=== PATIENT | male | born 1990 | race Caucasian/White ===

== ENCOUNTER 2017-03-19 10:44 | Emergency (ER) | payer SELFPAY ==
[~2017-03-19] VITALS: Ht 190.5 cm; Wt 108.4 kg
[2017-03-19 11:00] VITALS: BP 147/56
[2017-03-19] MEDS ORDERED: IBUPROFEN 800 MG TABLET. PO ONE (11:30)
--- NOTE | 2017-03-19 11:55 | RAD ---
Indication swollen. No history of injury. AP lateral and oblique views of the left foot were obtained. Similar AP lateral and oblique views of the ankle were also obtained. The ankle appears unremarkable. No bony abnormality is seen. Views of the foot also appear unremarkable apart from some soft tissue swelling laterally. IMPRESSION: No acute or significant bony finding involving the foot or ankle
--- NOTE | 2017-03-19 12:18 | PHYS DOC ---
Past Medical History Past Medical History: No Pertinent History Past Surgical History: Other Additional Past Surgical Histo: KNEE Alcohol Use: Occasionally Drug Use: Marijuana Adult General Chief Complaint Chief Complaint: ANKLE PROBLEM HPI HPI Patient is a 26 year old male presents to the emergency department stating that he has having left lateral foot and ankle pain for the last 2 days. Patient states that he has a knot just below his ankle on the foot. Patient denies any injury or trauma. He does state he has increased pain with ambulation or weight bearing weight. Patient has not taken anything for pain and discomfort. He denies any numbness or tingling into his toes. Peripheral pulses are 2+ cap refill brisk less than 2 seconds. Review of Systems Review of Systems Constitutional: Denies fever or chills [] Eyes: Denies change in visual acuity, redness, or eye pain [] HENT: Denies nasal congestion or sore throat [] Respiratory: Denies cough or shortness of breath [] Cardiovascular: No additional information not addressed in HPI [] GI: Denies abdominal pain, nausea, vomiting, bloody stools or diarrhea [] : Denies dysuria or hematuria [] Musculoskeletal: Denies back pain. Right ankle/foot pain and discomfort Integument: Denies rash or skin lesions [] Neurologic: Denies headache, focal weakness or sensory changes [] Endocrine: Denies polyuria or polydipsia [] Current Medications Current Medications Current Medications Medications (Trade) Dose Ordered Sig/[facility] Start Time Stop Time Status Last Admin Dose Admin Ibuprofen (Motrin) 800 mg 1X ONCE 03/19/17 11:30 03/19/17 11:31 DC 03/19/17 11:40 800 MG Allergies Allergies Allergies Coded Allergies Type Severity Reaction Last Updated Verified No Known Drug Allergies 01/25/16 No Physical Exam Physical Exam Constitutional: Well developed, well nourished, no acute distress, non-toxic appearance. [] HENT: Normocephalic, atraumatic, bilateral external ears normal, oropharynx moist, no oral exudates, nose normal. [] Eyes: PERRLA, EOMI, conjunctiva normal, no discharge. [] Neck: Normal range of motion, no tenderness, supple, no stridor. [] Cardiovascular:Heart rate regular rhythm Lungs & Thorax: No respiratory distress noted Skin: Warm, dry, no erythema, no rash. [] Extremities: Left ankle/foot tenderness, no cyanosis, no clubbing, ROM intact, no edema. Patient with a golf ball size area on the left upper foot/ankle area. Tenderness was noted. Peripheral pulses are 2+ cap refill brisk less than 2 seconds. Patient with full range of motion of the ankle area. Neurologic: Alert and oriented X 3, normal motor function, normal sensory function, no focal deficits noted. [] Psychologic: Affect normal, judgement normal, mood normal. [] Current Patient Data Vital Signs Vital Signs Date Time Temp Pulse Resp B/P (MAP) Pulse Ox O2 Delivery O2 Flow Rate FiO2 03/19/17 11:00 97.5 56 18 100 Room Air 97.5 EKG EKG [] Radiology/Procedures Radiology/Procedures [][facility] [address] [place] [address] IMAGING REPORT Signed PATIENT: CHA BEGUM ACCOUNT: [id number] : 1990 LOCATION: ER AGE: 26 SEX: M EXAM [id number] STATUS: REG ER ORD. PHYSICIAN: LUCIAN BELTRE APRN REASON: left ankle pain PROCEDURE: ANKLE LEFT 3V; FOOT LEFT 3V Indication swollen. No history of injury. AP lateral and oblique views of the left foot were obtained. Similar AP lateral and oblique views of the ankle were also obtained. The ankle appears unremarkable. No bony abnormality is seen. Views of the foot also appear unremarkable apart from some soft tissue swelling laterally. IMPRESSION: No acute or significant bony finding involving the foot or ankle DICTATED and SIGNED BY: LEI HANSEN MD DATE: 03/19/17 1150 CC: LUCIAN BELTRE APRN; NO PCP ~ Course & Med Decision Making Course & Med Decision Making Pertinent Labs and Imaging studies reviewed. (See chart for details) X-rays of the ankle and foot was negative for any bony abnormalities per the radiologist. Patient will be discharged home with an William wrap and an Air- Stirrup splint. Patient provided his own crutches. Patient will be encouraged to use ibuprofen 800 mg every 8 hours. Recommended to wear the William wrap for the next 5-7 days in the Air-Stirrup splint for the next 7-10 days. He was provided with orthopedic name and number to follow up with if he continues to have pain and discomfort within the next week. Recommended ice packs on 20 minutes off 20 minutes several times a day elevation as much as possible. Continue to use the crutches for the next 2-3 days to help with ambulation. Patient agrees with discharge instructions, treatment regimens and follow-up recommendations. All questions and concerns were answered at the patient's bedside. Patient will be provided with a work note for the next 3 days. [] Dragon Disclaimer Dragon Disclaimer This electronic medical record was generated, in whole or in part, using a voice recognition dictation system. Departure Departure Impression: Primary Impression: Sprain of left foot Disposition: 01 HOME, SELF-CARE Condition: STABLE Referrals: NO PCP (PCP) Patient Instructions: Foot Sprain-Brief Additional Instructions: Activity as tolerated. Ibuprofen 800 mg every 8 hours with food stop taking few develop an upset stomach. Ice packs on 20 minutes off 20 minutes several times a day. Elevation as much as possible. Wear the William wrap for the next 3-5 days in the Air-Stirrup splint for the next 7 -10 days. Use the crutches to help with ambulation for the next 2-3 days. Follow-up with orthopedic if he continued pain and discomfort. Return back to emergency prior signs symptoms of become worse. Scripts No Active Prescriptions or Reported Meds Problem Qualifiers Primary Impression: Sprain of left foot Encounter type: initial encounter Qualified Codes: S93.602A - Unspecified sprain of left foot, initial encounter LUCIAN BELTRE METHODS TIME ANALYST Mar 19, 2017 12:18
== END 2017-03-19 12:20 | disposition home or self-care (01) ==
LOC: ER 10:44
DX: S93.602A Unspecified sprain of left foot, initial encounter (principal); X58.XXXA Exposure to other specified factors, initial encounter; Y93.89 Activity, other specified; Y92.89 Other specified places as the place of occurrence of the external cause; Y99.8 Other external cause status
CPT/HCPCS: 73610; 73630; 99284; L4350